=== PATIENT | female | born 1955 | race American Indian/Alaskan Native ===

== ENCOUNTER 2016-07-29 10:08 | Outpatient (CLI) | payer BC ==
--- NOTE | 2016-07-29 16:11 | Mammography Report ---
BONE DEXA:07/29/16 10:08:00 CLINICAL: Postmenopausal. No comparison. TECHNIQUE: Two site bone DEXA performed on an Hologic scanner. FINDINGS: The average BMD of the lumbar spine L1-L3 is 1.304g/cm squared with a T-score of +2.6 and a Z-score of +3.2. Status post lumbar fusion and metal hardware at L4-5. The average BMD of the left hip is 1.154g/cm squared with a T-score of +1.7 and a Z-score of +1.5. IMPRESSION: WHO classification: Normal with average fracture risk based on both lumbar spine and left hip measurements. RECOMMENDATION: Clinical correlation and routine screening. DEFINITIONS: BMD = Bone Mineral Density T-score = BMD related to mean peak bone mass of young adult (mean expressed in Standard Deviation) Z-score = Age matched BMD expressed in SD World Health Organization (WHO) Diagnostic Criteria Normal T-score > -1 SD Osteopenia T-score between -1 and -2.4 SD Osteoporosis T-score -2.5 SD or below NOTE: BMD is not the only risk factor for fracture. One should also consider factors such as the patient's age, risk of falling, previous osteoporotic fracture, family history of osteoporotic fractures, current smoker, and low body weight. Z-scores are not calculated if >80 years of age.
--- NOTE | 2016-07-30 11:47 | Mammography Report ---
Bilateral mammogram: Compared to 05/10/11. CAD study utilized. Findings: Predominance adipose tissue bilaterally. No microcalcification. New 3 mm focal circumscribed asymmetry upper mid right breast. Normal axilla. Impression: New 3 mm focal dense asymmetry right breast. Recommend spot mag and if necessary sonographic examination. BI-RADS CATEGORY: 0 = Needs additional imaging evaluation ACR BI-RADS MAMMOGRAPHIC CODES: 0 = Needs additional imaging evaluation; 1 = Negative; 2 = Benign; 3 = Probably benign; 4 = Suspicious; 5 = Malignant; 6 = Known biopsy-proven malignancy COMMENT: 1. Dense breast tissue, i.e., adenosis, fibrocystic changes, etc., may obscure an underlying neoplasm. 2. Approximately 10% of cancers are not detected with mammography. 3. A negative mammography report should not delay biopsy if a clinically suspicious mass is present. COMMENT: Patient follow-up letters are generated in [employer].
== END 2016-07-29 10:09 | disposition home or self-care (01) ==
LOC: MAMMO 10:08
PROVIDERS: ATTEND Internal Medicine
DX: Z12.31 Encounter for screening mammogram for malignant neoplasm of breast (principal); Z78.0 Asymptomatic menopausal state
CPT/HCPCS: 77080; G0202; 77067

== ENCOUNTER 2016-08-21 10:25 | Outpatient (CLI) | payer BC ==
--- NOTE | 2016-08-21 11:01 | Mammography Report ---
Right mammogram: Additional compression imaging in the lateral projection performed based on recent screening exam on July 29. The asymmetry described at that time is no longer identified on the additional images. The current exam appears unchanged from prior study in 2012. Impression: Normal exam. Recommendation: Annual mammogram followup. BI-RADS CATEGORY: 1 = Negative ACR BI-RADS MAMMOGRAPHIC CODES: 0 = Needs additional imaging evaluation; 1 = Negative; 2 = Benign; 3 = Probably benign; 4 = Suspicious; 5 = Malignant; 6 = Known biopsy-proven malignancy COMMENT: 1. Dense breast tissue, i.e., adenosis, fibrocystic changes, etc., may obscure an underlying neoplasm. 2. Approximately 10% of cancers are not detected with mammography. 3. A negative mammography report should not delay biopsy if a clinically suspicious mass is present.
== END 2016-08-21 10:26 | disposition home or self-care (01) ==
LOC: MAMMO 10:25
PROVIDERS: ATTEND Internal Medicine
DX: N64.89 Other specified disorders of breast (principal)
CPT/HCPCS: G0206-RT

== ENCOUNTER 2017-08-08 07:46 | Outpatient (CLI) | payer BC ==
--- NOTE | 2017-08-09 19:23 | Magnetic Resonance Report ---
FINAL REPORT PROCEDURE: MR UE JOINT LT WO CON TECHNIQUE: Magnetic resonance imaging of the LEFT elbow was performed using standard pulse sequences. HISTORY: LEFT ELBOW PAIN M25.522 COMPARISON: No prior studies are available for comparison. FINDINGS: There is a small amount of high T2 signal at the origin of the common flexor tendon, compatible with mild medial epicondylitis. Common extensor tendon is unremarkable. There is a small amount of high signal at the biceps insertion on the radial head, suggesting tendinopathy. The biceps, brachialis, and triceps tendons are intact otherwise. Medial and lateral collateral ligament complexes are intact. The ulnar nerve is normal in signal and configuration. No joint effusion. No marrow edema. IMPRESSION: Findings compatible with mild medial epicondylitis Mild tendinopathy at the insertion of the biceps tendon on the radial head
== END 2017-08-08 07:47 | disposition home or self-care (01) ==
LOC: MRI 07:46
PROVIDERS: ATTEND Internal Medicine
DX: M25.522 Pain in left elbow (principal)

== ENCOUNTER 2018-09-17 07:35 | Outpatient (CLI) | payer BC ==
--- NOTE | 2018-09-17 09:53 | Mammography Report ---
BILATERAL DIGITAL SCREENING MAMMOGRAM WITH CAD INDICATION: Routine screening mammography. TECHNIQUE: Digital bilateral 2D mammography was obtained in the craniocaudal and mediolateral obliq ue projections. This examination was interpreted with the benefit of Computer-Aided Detection analysi s. COMPARISON: 08/08/2017 FINDINGS: Breast Density: There are scattered areas of fibroglandular density. No mass, architectural distortion or suspicious calcifications. IMPRESSION:No mammographic evidence of malignancy. BI-RADS Category 1: Negative. No mammographic evidence of malignancy. Recommend routine screening m ammography in one year. A "normal" or negative report should not discourage follow up or biopsy of a clinically significant f inding. A written summary of these findings will be mailed to the patient. The patient will be entered into a mammography reporting system which will generate a reminder letter for the patient's next appointmen t at the appropriate interval. The [employer] recommends yearly mammograms starting at age 40 and continuing as l ana as a woman is in good health. Breast MRI is recommended for women with an approximate 20-25% or greater lifetime risk of breast cancer, including women with a strong family history of breast or ova javier cancer or who have been treated for Hodgkin's disease. Signer Name: Raphael Oswald MD Signed: 09/17/2018 9:48 AM Workstation Name: [id number]
== END 2018-09-17 07:36 | disposition home or self-care (01) ==
LOC: MAMMO 07:35
PROVIDERS: ATTEND Internal Medicine
DX: Z12.31 Encounter for screening mammogram for malignant neoplasm of breast (principal)
CPT/HCPCS: 77067